=== PATIENT | female | born 1955 | race Caucasian/White ===

== ENCOUNTER 2017-05-22 02:57 | Emergency (ER) | payer SELFPAY ==
--- NOTE | ~2017-05-22 | ER ---
PATIENT'S NAME: [facility] AGE: 62 Y [address] ROOM: [place] [id number] LOCATION: [facility] ADMIT DATE: 05/22/2017 ER/Outpatient Report DISCHARGE DATE: FAMILY PHYSICIAN: Mickey Morales MD ATTENDING PHYSICIAN: Kip Gould Admission date and time documented in the medical record. I saw the patient at 0410 hours. CHIEF COMPLAINT: Swollen right side of her tongue. HISTORY OF PRESENT ILLNESS: This patient is a 62-year-old female, who presented with swelling on the right side of her tongue. She woke up about 10 or 15 minutes prior to admission to the emergency room, had some difficulty swallowing, noticed that her right side of her tongue was swollen. She has had a history of angioedema of the tongue, usually affects the right half, etiology for this is undetermined. She has had several workups. They think it some type of allergic response, but do not know the exact causative substance. HOME MEDICATIONS: See attached medication list. ALLERGIES: PENICILLIN. SOCIAL HISTORY: Nonsmoker, nondrinker. SIGNIFICANT PAST MEDICAL HISTORY: Hypertension, gastroesophageal reflux, hiatal hernia, angioedema of the tongue. OPERATIONS: Tonsillectomy and esophagogastroduodenoscopy. REVIEW OF SYSTEMS: All systems reviewed by me are negative with the exception of those discussed in the history of present illness. PHYSICAL EXAMINATION: VITAL SIGNS: Blood pressure 235/119, pulse 94, respirations 24, O2 saturation on room air is 100%. HEAD: Normocephalic. PATIENT'S NAME: [facility] AGE: 62 Y [address] ROOM: [place] [id number] LOCATION: [facility] ADMIT DATE: 05/22/2017 ER/Outpatient Report DISCHARGE DATE: FAMILY PHYSICIAN: Mickey Morales MD ATTENDING PHYSICIAN: Kip Gould EYES: Clear. EARS: Clear TMs bilaterally. NOSE: Clear. THROAT: Clear. Mucous membranes moist. Right half of the tongue has some [id number]-lc-apdawxle angioedema. Posterior pharynx is not swollen. Left side of her tongue is not swollen. NECK: No nuchal rigidity. No thyromegaly or cervical lymphadenopathy. Full range of motion. No tenderness. SPINE: Negative. LUNGS: Clear. Good airflow. No rales, rhonchi, or wheezes. HEART: Regular. Pulses are palpable. ABDOMEN: Soft, nontender. Good bowel tones. EXTREMITIES: Intact. Neurovascularly intact. SKIN: Clear. No skin eruptions or rash. IMPRESSION: Angioedema, right side of tongue, etiology uncertain. PLAN: The patient did take 20 mg orally prior to admission to the emergency room, so it was about 20 or 30 minutes ago. We did give the patient Solu-Medrol 125 mg IM along with Benadryl 50 mg IM here in the emergency department. We also gave the patient epinephrine 0.3 IM, discharged the patient home. Observation. Activity as tolerated. Prednisone 20 mg b.i.d. for 7 days. Benadryl 25 to 50 mg orally every 4 to 6 hours as needed. Fluids, diet as tolerated. Follow up with personal physician as scheduled. MD ULISES ESPAÑA/modl /[id number] d: 05/22/17 0359 t: 05/22/17 1808, OUTPATIENT REPORT
== END 2017-05-22 04:23 | disposition disaster alternative care site (69) ==
LOC: GMED 02:57
DX: T78.3XXA Angioneurotic edema, initial encounter (principal); I10 Essential (primary) hypertension; K21.9 Gastro-esophageal reflux disease without esophagitis; Z90.89 Acquired absence of other organs; Z88.0 Allergy status to penicillin
CPT/HCPCS: J0171; J1200; J2930